=== PATIENT | female | born 1960 | race Caucasian/White ===

== ENCOUNTER → 2022-11-22 | Outpatient (CLI) | payer OTHER | END | disposition home or self-care (01) | LOC: RAH 15:30 | PROVIDERS: ATTEND Family Medicine | DX: Z12.31 Encounter for screening mammogram for malignant neoplasm of breast (principal) | CPT/HCPCS: 77067 ==

== ENCOUNTER → 2024-05-02 | Outpatient (CLI) | payer OTHER | END | disposition home or self-care (01) | LOC: RAH 13:34 | PROVIDERS: ATTEND Family Medicine | DX: K75.3 Granulomatous hepatitis, not elsewhere classified (principal); D73.89 Other diseases of spleen; K86.89 Other specified diseases of pancreas; I70.0 Atherosclerosis of aorta; M43.8X6 Other specified deforming dorsopathies, lumbar region | CPT/HCPCS: 74176 ==

== ENCOUNTER → 2025-03-19 | Outpatient (CLI) | payer OTHER ==
[~2025-03-19] MED LIST: IOHEXOL 350 MG/ML 100ML INFUS..BTL IV ONE
--- NOTE | 2025-03-19 17:50 | HMCIMG ---
EXAM: MR Right Shoulder WITHOUT CONTRAST CLINICAL HISTORY: 64 year old female with a sprain of the right acromioclavicular joint TECHNIQUE: Multiplanar multisequence magnetic resonance images were obtained WITHOUT contrast. CONTRAST: None COMPARISON: None FINDINGS: JOINTS: Moderate acromioclavicular joint degenerative changes with capsular hypertrophy and encroachment on the right rotator cuff. BONE: No acute fracture or focal osseous lesion. SOFT TISSUES: Moderate tendinopathy of the supraspinatus/infraspinatus, moderate fluid of the biceps suggesting tenosynovitis. The labrum is intact. The soft tissues are otherwise unremarkable. IMPRESSION: 1. Moderate AC joint degenerative changes with capsular hypertrophy and encroachment on the right rotator cuff. 2. Mild tendinopathy of the supraspinatus/infraspinatus. 3. Moderate fluid of biceps suggesting tenosynovitis. /[place]
--- NOTE | 2025-03-22 14:33 | CARDIOLOGY ---
RAD REPORT: [facility] CT ANGIO RADIOLOGY REPORT: CORONARY CT ANGIOGRAPHY DATE: Mar 22, 2025 QUALITY: Excellent CLINICAL HISTORY AND INDICATION: [ chest pain ] TECHNIQUE: After obtaining a preliminary automation software engineer image, contrast imaging performed on an [id number] [id number] scanner. A dedicated, limited window, coronary imaging protocol was used, with single breath-hold, retrospective ECG gating, and automated arrhythmia rejection. 100 cc of low osmolar contrast agent: Omnipaque 350 was delivered via a 18-gauge IV catheter in the right antecubital fossa, using a power injector and followed by 60 cc of normal saline bolus as a chaser. Collimated images were reformatted at 0.5 mm intervals, and sent to an offline independent workstation for interpretation, using 3D anatomic reconstructions: Curved multiplanar reconstructions, maximum intensity projections, and multiplanar imaging. No metoprolol was administered prior to scanning due to low baseline heart rate. 0.8 mg SL nitroglycerin was given. CORONARY ARTERY DESCRIPTIONS: The coronary arteries arise in normal position. Left main coronary artery: Normal caliber vessel that trifurcates into the LAD, ramus and LCx. No stenosis. Left anterior descending coronary artery: Normal caliber vessel and gives rise to diagonal and septal branches. There is calcified plaque in the proximal LAD with 30-40% stenosis. Ramus intermedius artery: Normal caliber, no stenosis. Left circumflex coronary artery: Normal caliber, nondominant and gives rise to a large OM branch. There is mixed calcified and noncalcified plaque in the mid LCx with 20-30% stenosis. Right coronary artery: Large, dominant vessel giving rise to the PL and PDA branches. There is mixed calcified and noncalcified plaque in the proximal to mid RCA with 50-60% stenosis. CAD-RADs: 3, moderate stenosis. Thoracic Aorta: Normal diameter. Jenna Yang MD Cardiovascular Disease [facility] JENNA YANG MD Mar 22, 2025 14:33
== END | disposition home or self-care (01) ==
LOC: RAH 08:40
PROVIDERS: ATTEND Family Medicine
DX: S43.51XD Sprain of right acromioclavicular joint, subsequent encounter (principal); I24.89 Other forms of acute ischemic heart disease; I11.9 Hypertensive heart disease without heart failure; M19.011 Primary osteoarthritis, right shoulder; M67.911 Unspecified disorder of synovium and tendon, right shoulder; I25.10 Atherosclerotic heart disease of native coronary artery without angina pectoris; R07.9 Chest pain, unspecified; X58.XXXD Exposure to other specified factors, subsequent encounter
CPT/HCPCS: 75574; 73221; Q9967